=== PATIENT | male | born 1990 | race American Indian/Alaskan Native ===

== ENCOUNTER 2018-06-28 07:04 | Emergency (ER) | payer SELFPAY ==
[2018-06-28 07:34] VITALS: BP 116/67
--- NOTE | 2018-06-28 09:01 | Emergency Department Report ---
Abscess Boil HPI - HPI Chief Complaint: Skin/Abscess/Foreign Body Stated Complaint: ABSCESS/LEFT SIDE BUTTOCKS Time Seen by Provider: 06/28/18 08:46 Duration: 4 Days Location: Other (left buttocks) Severity: Moderate (5/10) History: Yes Pain (tender to touch), Yes Purulent Drainage, Yes Previous History , No Fever, No Numbness, No Foreign Body, No Insect Bite HPI: This is a 28-year-old male here report that he has an abscess that is draining into his left buttocks. He states it is getting bigger. Pain is 5 out of 10 and sharp. Pain is worse to touch. No alleviating factors. No medication use. Patient is a history of foot surgery and appendectomy. Tetanus vaccine is not up-to-date. Denies any fever or chills, nausea or vomiting, shortness of breath or chest pain. Home Medications: Previous Rx's Medication Instructions Recorded Last Taken Type Ibuprofen [Motrin] 800 mg PO Q8HR PRN #15 tablet 06/28/18 Unknown Rx Sulfamethoxazole/Trimethoprim 1 each PO BID 10 Days #20 tablet 06/28/18 Unknown Rx [Bactrim DS TAB] Allergies/Adverse Reactions: Allergies Allergy/AdvReac Type Severity Reaction Status Date / Time No Known Allergies Allergy Unverified 06/28/18 07:30 ED Review of Systems ROS: Stated complaint: ABSCESS/LEFT SIDE BUTTOCKS Other details as noted in HPI Constitutional: denies: chills, fever ENT: denies: ear pain, throat pain Respiratory: denies: cough, shortness of breath, SOB with exertion, SOB at rest , stridor, wheezing Cardiovascular: denies: chest pain, palpitations Gastrointestinal: denies: nausea, vomiting, diarrhea Genitourinary: denies: urgency, dysuria, hematuria Musculoskeletal: denies: back pain, joint swelling, arthralgia, myalgia Skin: other (boil to left buttocks). denies: rash, lesions Neurological: denies: headache ED Past Medical Hx - Past Medical History Previous Medical History?: No - Surgical History Past Surgical History?: Yes Hx Appendectomy: Yes Additional Surgical History: FOOT SURGERY X2 - Family History Family history: hypertension - Social History Smoking Status: Current Every Day Smoker Substance Use Type: None - Medications Home Medications: Home Medications Medication Instructions Recorded Confirmed Last Taken Type Ibuprofen [Motrin] 800 mg PO Q8HR PRN #15 tablet 06/28/18 Unknown Rx Sulfamethoxazole/Trimethoprim 1 each PO BID 10 Days #20 tablet 06/28/18 Unknown Rx [Bactrim DS TAB] ED Abscess Boil Physical Exam - Exam General: Vital signs noted. No distress. Alert and acting appropriately. This is a 28-year-old male well-nourished well-developed in no acute distress. Front/Back of Body, Lg (Color): 1 - Patient with indurated nonfluctuant area with opening to Center with scant amount of drainage, tender to palpate the left buttocks. Minimal surrounding erythema. No necrosis or breakdown of skin noted. Size: 2 cm Exam: Yes Tenderness (positive induration), Yes Surrounding Cellulites/Erythema (mild surrounding cellulitis), Yes Heart Murmur (S1, S2. Regular rate and rhythm), Yes Normal Neurologic Exam (alert and oriented 3, normal gait), Yes Normal Circulation (No cce. + 2 pulses in all extremities, no neurovascular compromise), No Fluctuance, No Lymphangitis, No Crepitation I & D Note - I & D Note I & D Note: Incision and drainage procedure not done due to slight sorry drainage and still with indurated area without any fluctuant. Minimal drainage coming from site. I discussed the patient and he needs to apply warm compresses to affected area to facilitate softening and drainage of abscess and that if area does not drain within 4 days after being on the antibiotic then he needs to return to the emergency room for incision and drainage otherwise if here is drainage then allow area to drain. He was given Boostrix and started an antibiotic and he voiced understanding. Area cleansed with normal saline and iodine followed by normal saline and sterile dry dressing placed to site ED Course Vital Signs 06/28/18 07:30 Temperature 98.2 F Pulse Rate 63 Respiratory 18 Rate Blood Pressure 116/67 O2 Sat by Pulse 100 Oximetry - Reevaluation(s) Reevaluation #1: 06/28/18 09:22 Patient given Bactrim DS and Motrin 800 mg for abscess and cellulitis and also pain. Pain is better and he was given Boostrix 0.5 mL injection for update on tetanus. Patient stable. Critical care attestation.: If time is entered above; I have spent that time in minutes in the direct care of this critically ill patient, excluding procedure time. ED Medical Decision Making - Medical Decision Making This is a 28-year-old male here because he said he has had abscess to his left buttocks over several days that is painful but it started draining yesterday. Tetanus vaccine is not up-to-date. He is to be evaluated. She was seen and evaluated by myself and physical exam is normal except he has a 2 cm indurated nonfluctuant area to left buttock with open into sign with minimal drainage. Tender to palpate. Unable to incision and drain site due to nonfluctuant. Area cleansed with iodine, normal saline and sterile dry dressing placed over site. Patient instructed to apply warm compresses to affected area 3-4 times a day to facilitate softening drainage. I told him that if area is not draining within 4 days of being on antibiotic to return to the emergency room for incision and drainage otherwise to follow-up with his primary care physician in 4 days for reevaluation. He voiced understanding. Patient given Boostrix 0.5 mL to update tetanus, Motrin 800 mg by mouth for pain which pain has subsided and Bactrim DS to start this treatment for abscess and cellulitis. Discharge home in stable condition, vital signs are stable he is afebrile and pain is better. Discharged home with prescription for Bactrim DS and Motrin. ED Disposition Clinical Impression: Cellulitis and abscess of buttock Disposition: TO HOME OR SELFCARE Is pt being admited?: No Does the pt Need Aspirin: No Condition: Stable Instructions: Abscess (ED), Cellulitis (ED) Additional Instructions: Please see discharge instruction in acute wound care Apply warm compresses to affected area 4 times a day to facilitate then and increased drainage return to emergency room in 4 days for removal of packing if area is not draining otherwise follow-up with a primary care doctor and if he do not have a primary care doctor he can follow up at [facility] Keep affected area clean and dry Motrin for pain and please take medication with food to prevent nausea or irritation to stomach lining Take Bactrim DS for infection Return to the emergency room if, he developed fever, chills, increased pain and drainage from site, nausea and vomited, increase in redness and/or weakness. Referrals: PRIMARY CARE,MD [Primary Care Provider] - 2-3 Days [facility] [Outside] - 2-3 Days Forms: Work/School Release Form(ED)
[2018-06-28] MEDS ORDERED: MOTRIN PO ONE (09:02)
[2018-06-28] MEDS ORDERED: BACTRIM DS PO ONE (09:02)
[2018-06-28] MEDS ORDERED: BOOSTRIX IM ONE (09:17)
== END 2018-06-28 09:43 | disposition home or self-care (01) ==
LOC: ED 07:04
DX: L02.31 Cutaneous abscess of buttock (principal); L03.317 Cellulitis of buttock
CPT/HCPCS: 90471; 90715; 99282

== ENCOUNTER 2018-07-30 08:59 | Emergency (ER) | payer OTHER ==
[2018-07-30 09:22] VITALS: BP 115/75
[2018-07-30] MEDS ORDERED: XYLOCAINE 2%/EPI 1:100,000 INFILTRATI ONE (11:06)
--- NOTE | 2018-07-30 11:07 | Emergency Department Report ---
Abscess Boil HPI - HPI Chief Complaint: Skin/Abscess/Foreign Body Stated Complaint: LFT BUTT CHEEKS/PAIN Time Seen by Provider: 07/30/18 11:05 Duration: 2 Days Location: Other (right buttock) Severity: Mild History: Yes Pain, No Fever, No Purulent Drainage, No Numbness, No Foreign Body , No Previous History, No Insect Bite HPI: This is a 28-year-old male nontoxic, well nourished in appearance, no acute signs of distress presents to the ED with c/o of right buttock abscess x2 days. Patient stated was seen last month and symptoms resolved but came back. Patient denies any pus, draiange, fever, chills, headache, nausea, vomiting, chest pain, shortness of breathe. Patient denies any allergies or PMH. Home Medications: Previous Rx's Medication Instructions Recorded Last Taken Type Ibuprofen [Motrin] 800 mg PO Q8HR PRN #15 tablet 06/28/18 Unknown Rx Sulfamethoxazole/Trimethoprim 1 each PO BID 10 Days #20 tablet 06/28/18 Unknown Rx [Bactrim DS TAB] Acetaminophen/Codeine [Tylenol 1 tab PO Q6H PRN #12 tab 07/30/18 Unknown Rx /Codeine # 3 tab] Sulfamethoxazole/Trimethoprim 1 each PO BID #14 tablet 07/30/18 Unknown Rx [Bactrim DS TAB] Allergies/Adverse Reactions: Allergies Allergy/AdvReac Type Severity Reaction Status Date / Time No Known Allergies Allergy Unverified 06/28/18 07:30 ED Review of Systems ROS: Stated complaint: LFT BUTT CHEEKS/PAIN Other details as noted in HPI Constitutional: denies: chills, fever Eyes: denies: eye pain, eye discharge, vision change ENT: denies: ear pain, throat pain Respiratory: denies: cough, shortness of breath, wheezing Cardiovascular: denies: chest pain, palpitations Endocrine: no symptoms reported Gastrointestinal: denies: abdominal pain, nausea, diarrhea Genitourinary: denies: urgency, dysuria Musculoskeletal: denies: back pain, joint swelling, arthralgia Skin: denies: rash, lesions Neurological: denies: headache, weakness, paresthesias Psychiatric: denies: anxiety, depression Hematological/Lymphatic: denies: easy bleeding, easy bruising ED Past Medical Hx - Past Medical History Previous Medical History?: No Additional medical history: Arthrogryposis - Surgical History Past Surgical History?: Yes Hx Appendectomy: Yes Additional Surgical History: FOOT SURGERY X2 - Social History Smoking Status: Current Every Day Smoker Substance Use Type: None - Medications Home Medications: Home Medications Medication Instructions Recorded Confirmed Last Taken Type Ibuprofen [Motrin] 800 mg PO Q8HR PRN #15 tablet 06/28/18 Unknown Rx Sulfamethoxazole/Trimethoprim 1 each PO BID 10 Days #20 tablet 06/28/18 Unknown Rx [Bactrim DS TAB] Acetaminophen/Codeine [Tylenol 1 tab PO Q6H PRN #12 tab 07/30/18 Unknown Rx /Codeine # 3 tab] Sulfamethoxazole/Trimethoprim 1 each PO BID #14 tablet 07/30/18 Unknown Rx [Bactrim DS TAB] ED Abscess Boil Physical Exam - Exam General: Vital signs noted. No distress. Alert and acting appropriately. Front/Back of Body, Lg (Color): 1 - 1 cm abscess Size: 1 cm Exam: Yes Tenderness, Yes Fluctuance, Yes Normal Neurologic Exam, Yes Normal Circulation, No Surrounding Cellulites/Erythema, No Lymphangitis, No Crepitation , No Heart Murmur I & D Note - I & D Note I & D Note: Under sterile field, I used Betadine to cleanse the area. I then used 2% lidocaine with epi 1:100,000 with 25-gauge 5/8 needle to inject area for anesthetic purposes. Total volume injected 3 mL. I then used an 11 blade to make a 1 cm incision. About 2 mL's of purulent drainage has been noted. I then used a hemostat to break the abscess formation. I then used sterile 0.9% normal saline flush to flush the wound with total volume of 40 mL used. I then put a 1/4 iodoform packing to the incision. A sterile 4 x 4 with tape has been applied as dressing. Bleeding is under control. Patient tolerated the procedure well with no signs of distress noted. ED Course Vital Signs 07/30/18 09:18 Temperature 98.7 F Pulse Rate 52 L Respiratory 14 Rate Blood Pressure 115/75 O2 Sat by Pulse 99 Oximetry - Reevaluation(s) Reevaluation #1: 07/30/18 11:09 Patient is speaking in full sentences with no signs of distress noted. Critical care attestation.: If time is entered above; I have spent that time in minutes in the direct care of this critically ill patient, excluding procedure time. ED Medical Decision Making - Medical Decision Making This is a 28-year-old male that presents with left axillary abscess. Patient is stable and was examined by me. This is incision and drainage and has been performed and patient tolerated well. A sterile dressing has been applied. Patient was educated on proper wound care. Patient is discharged with Bactrim and Tylenol with codeine and was instructed not to operate any machinery while taking Tylenol with codeine due to drowsiness. Patient was instructed to return in 2 days for packing removal. Patient was instructed to refer to Follow -up with a primary care doctor in 3-5 days or if symptoms worsen and continue return to emergency room as soon as possible. At time of discharge, the patient does not seem toxic or ill in appearance. No acute signs of distress noted. Patient agrees to discharge treatment plan of care. No further questions noted by the patient. ED Disposition Clinical Impression: Abscess, Encounter for incision and drainage procedure Disposition: - TO HOME OR SELFCARE Is pt being admited?: No Does the pt Need Aspirin: No Condition: Stable Instructions: Abscess Incision and Drainage (ED), Abscess (ED), Acetaminophen/ Codeine (By mouth) Additional Instructions: Follow-up with a primary care doctor in 3-5 days or if symptoms worsen and continue return to emergency room as soon as possible. Return in 2 days for packing removal. Prescriptions: Acetaminophen/Codeine [Tylenol /Codeine # 3 tab] 1 tab PO Q6H PRN #12 tab PRN Reason: Pain , Severe (7-10) Sulfamethoxazole/Trimethoprim [Bactrim DS TAB] 1 each PO BID #14 tablet Referrals: PRIMARY CAREMD [Primary Care Provider] - 3-5 Days LEATHA GRAY MD [Staff Physician] - 3-5 Days [facility] [Outside] - 3-5 Days Forms: Work/School Release Form(ED)
== END 2018-07-30 11:53 | disposition home or self-care (01) ==
LOC: ED 08:59
DX: L02.31 Cutaneous abscess of buttock (principal); F17.200 Nicotine dependence, unspecified, uncomplicated; Z90.89 Acquired absence of other organs
CPT/HCPCS: 99282

== ENCOUNTER 2021-01-13 10:19 | Emergency (ER) | payer MEDICAID ==
--- NOTE | 2021-01-13 10:37 | Event Note ---
ED Screening Note ED Screening Note: abscess on rectal area This initial assessment/diagnostic orders/clinical plan/treatment(s) is/are subject to change based on patients health status, clinical progression and re- assessment by fellow clinical providers in the ED. Further treatment and workup at subsequent clinical providers discretion. Patient/guardian urged not to elope from the ED as their condition may be serious if not clinically assessed and managed. Initial orders include: room for eval I/D
[2021-01-13 10:40] VITALS: BP 108/63
--- NOTE | 2021-01-13 11:08 | Emergency Department Report ---
Abscess Boil HPI - HPI Chief Complaint: Skin/Abscess/Foreign Body Stated Complaint: ABSCESS Time Seen by Provider: 01/13/21 10:37 Duration: >1 Week Location: Sacral/Pilonidal Severity: Mild History: Yes Pain, Yes Previous History, No Fever, No Purulent Drainage, No Numbness, No Foreign Body, No Insect Bite HPI: 30 yo male comes to ER with "bump" on his "butt." Ambulatory without difficult. No fever or chills. Has had before. No drainage. Did not see PCP. Did not take meds captain room service. Home Medications: Previous Rx's Medication Instructions Recorded Last Taken Type Ibuprofen [Motrin] 800 mg PO Q8HR PRN #15 tablet 01/13/21 Unknown Rx Sulfamethoxazole/Trimethoprim 1 each PO BID 10 Days #20 tablet 01/13/21 Unknown Rx [Bactrim DS TAB] Allergies/Adverse Reactions: Allergies Allergy/AdvReac Type Severity Reaction Status Date / Time No Known Allergies Allergy Unverified 06/28/18 07:30 ED Review of Systems ROS: Stated complaint: ABSCESS Other details as noted in HPI Comment: All other systems reviewed and negative ED Past Medical Hx - Past Medical History Previous Medical History?: Yes Additional medical history: Arthrogryposis - Surgical History Past Surgical History?: Yes Hx Appendectomy: Yes Additional Surgical History: FOOT SURGERY X2 - Family History Family history: no significant - Social History Smoking Status: Current Every Day Smoker Substance Use Type: Marijuana - Medications Home Medications: Home Medications Medication Instructions Recorded Confirmed Last Taken Type Ibuprofen [Motrin] 800 mg PO Q8HR PRN #15 tablet 01/13/21 Unknown Rx Sulfamethoxazole/Trimethoprim 1 each PO BID 10 Days #20 tablet 01/13/21 Unknown Rx [Bactrim DS TAB] ED Abscess Boil Physical Exam - Exam General: Vital signs noted. No distress. Alert and acting appropriately. Front/Back of Body, Lg (Color): 1 - pea size- under skin; not abscessed for I/D Size: 1 cm Exam: Yes Normal Neurologic Exam, Yes Normal Circulation, No Tenderness, No Fluctuance, No Surrounding Cellulites/Erythema, No Lymphangitis, No Crepitation, No Heart Murmur I & D Note - I & D Note I & D Note: none ED Course Vital Signs 01/13/21 10:38 Temperature 98.3 F Pulse Rate 68 Respiratory 16 Rate Blood Pressure 108/63 [Right] O2 Sat by Pulse 99 Oximetry Critical care attestation.: If time is entered above; I have spent that time in minutes in the direct care of this critically ill patient, excluding procedure time. ED Medical Decision Making - Medical Decision Making small pea size abscess at the gluteal fold (sacral area); it is under the tissue- not forming a sac for I/D Pt has had before VSS NAD dc home with rx and pcp follow up. He understands he needs to see pcp p meds to be sure this is getting better. Vital Signs 01/13/21 10:38 Temperature 98.3 F Pulse Rate 68 Respiratory 16 Rate Blood Pressure 108/63 [Right] O2 Sat by Pulse 99 Oximetry - Differential Diagnosis abscess ED Disposition Clinical Impression: Simple abscess Disposition: DC-01 TO HOME OR SELFCARE Is pt being admited?: No Does the pt Need Aspirin: No Condition: Stable Instructions: Skin Abscess Additional Instructions: warm compresses and soaking in warm water with epsom salts will help med as ordered today follow up with pcp once med completed referral below Prescriptions: Sulfamethoxazole/Trimethoprim [Bactrim DS TAB] 1 each PO BID 10 Days #20 tablet Ibuprofen [Motrin] 800 mg PO Q8HR PRN #15 tablet PRN Reason: pain Referrals: MEGGAN OWEN MD [Staff Physician] - 3-5 Days Forms: Work/School Release Form(ED) Time of Disposition: 11:10
== END 2021-01-13 11:45 | disposition home or self-care (01) ==
LOC: ED 10:19
DX: L02.31 Cutaneous abscess of buttock (principal); F17.200 Nicotine dependence, unspecified, uncomplicated; F12.10 Cannabis abuse, uncomplicated; Z90.49 Acquired absence of other specified parts of digestive tract; Z98.890 Other specified postprocedural states; Z79.1 Long term (current) use of non-steroidal anti-inflammatories (NSAID); Z79.899 Other long term (current) drug therapy
CPT/HCPCS: 99281